=== PATIENT | male | born 1985 | race Caucasian/White ===

== ENCOUNTER 2017-02-10 14:51 | Emergency (ER) | payer SELFPAY ==
[2017-02-10] MEDS ORDERED: Dexamethasone 4 MG TAB ONE (15:15)
[2017-02-10] MEDS ORDERED: Gabapentin 100 MG CAP ONE (15:15)
[2017-02-10] MEDS ORDERED: Ketorolac Tromethamine 60 MG/2 ML VIAL ONE (15:15)
== END 2017-02-10 15:26 | disposition home or self-care (01) ==
LOC: MADERS 14:51
DX: M54.5 Low back pain (principal); J45.909 Unspecified asthma, uncomplicated; F31.9 Bipolar disorder, unspecified; F17.210 Nicotine dependence, cigarettes, uncomplicated
CPT/HCPCS: 96372; J1885; J8540

== ENCOUNTER 2017-09-22 18:57 | Emergency (ER) | payer SELFPAY ==
[2017-09-22] MEDS ORDERED: Ketorolac Tromethamine 60 MG/2 ML VIAL ONE (19:28)
[2017-09-22] MEDS ORDERED: HYDROcodone/Acetaminophen 10/325 mg Tablet ONE (19:28)
== END 2017-09-22 19:37 | disposition left against medical advice (07) ==
LOC: MADERS 18:57
DX: Z53.21 Procedure and treatment not carried out due to patient leaving prior to being seen by health care provider (principal)
CPT/HCPCS: J1885

== ENCOUNTER 2017-09-25 13:12 | Emergency (ER) | payer SELFPAY ==
[2017-09-25] MEDS ORDERED: HYDROcodone/Acetaminophen 10/325 mg Tablet ONE (14:14)
== END 2017-09-25 14:40 | disposition home or self-care (01) ==
LOC: MADERS 13:12
DX: M54.5 Low back pain (principal); F31.9 Bipolar disorder, unspecified; F17.210 Nicotine dependence, cigarettes, uncomplicated; J45.909 Unspecified asthma, uncomplicated
CPT/HCPCS: 99283

== ENCOUNTER 2018-03-11 10:08 | Emergency (ER) | payer SELFPAY ==
[2018-03-11] MEDS ORDERED: Ketorolac Tromethamine 60 MG/2 ML VIAL ONE (10:48)
[2018-03-11] MEDS ORDERED: traMADol HCl 50 MG TAB ONE (10:48)
--- NOTE | 2018-03-11 11:19 | CT ---
CT LUMBAR SPINE WITHOUT CONTRAST: Date: 03/11/18 HISTORY: Chronic low back pain. Difficulty standing and getting dressed. COMPARISON: None. TECHNIQUE: CT lumbar spine is performed without intravenous Gadolinium administration. Multisequential, multipla riley imaging is performed. FINDINGS: Straightening of normal lumbar lordosis, likely due to patient positioning or muscle spasm. 3.0 mm re trolisthesis of L3 upon L4, 6.0 mm retrolisthesis of L4 upon L5, and 2.0 mm retrolisthesis of L5 upon S1. No associated spondylolysis. Visualized lung parenchyma is unremarkable. Visualized solid organs have appropriate attenuation. No retroperitoneal mass, lymphadenopathy, or hematoma. Visualized aorta is unremarkable. Visualized alim entary canal is also unremarkable. Lumbar spine vertebral body height is maintained. No fracture. Transverse processes and spinous proce sses are intact. Sacroiliac joints are unremarkable. Limited evaluation of the contents of the central spinal canal and neural foramina due to technique. There appears to be a central disc bulge, incompletely evaluated, at the T10-T11 level. T11-T12 and T12-L1: No significant central canal stenosis or foraminal narrowing. L1-L2: No significant central canal stenosis or foraminal narrowing. L2-L3: No significant central canal stenosis or foraminal narrowing. L3-L4: No significant central canal stenosis or foraminal narrowing. L4-L5: There is a central disc protrusion with slight inferior disc extrusion. There is moderate central can al stenosis. Narrowing of both subarticular zones with presumed mass effect upon both traversing L5 n erve roots. Neural foramina are patent. L5-S1: Generalized disc bulge with a small central disc protrusion. No significant stenosis of the thecal sa c. Neural foramina are mildly narrowed. IMPRESSION: 1. No fracture. 2. Degenerative changes at L4-L5. Better interrogation with MRI recommended. POS: [facility]
== END 2018-03-11 11:38 | disposition home or self-care (01) ==
LOC: MADERS 10:08
DX: S39.012A Strain of muscle, fascia and tendon of lower back, initial encounter (principal); J45.909 Unspecified asthma, uncomplicated; F31.9 Bipolar disorder, unspecified; F17.210 Nicotine dependence, cigarettes, uncomplicated; X58.XXXA Exposure to other specified factors, initial encounter
CPT/HCPCS: 72131; 96372; J1885

== ENCOUNTER 2018-04-13 15:16 | Emergency (ER) | payer SELFPAY ==
--- NOTE | 2018-04-13 16:18 | RAD ---
RIGHT HAND THREE VIEWS: HISTORY: Injury to right hand with pain. FINDINGS: The carpals appear intact. Deformity of the fourth metacarpal is seen, secondary to an old healed fracture, which was demonstrat ed on prior exam from April 2016. No evidence of acute fracture identified. The metacarpals and phal anges otherwise appear intact. IMPRESSION: No acute fracture identified. POS: [facility]
[2018-04-13] MEDS ORDERED: HYDROcodone/Acetaminophen 10/325 mg Tablet ONE (16:22)
[2018-04-13] MEDS ORDERED: Naproxen 500 MG TAB ONE (16:22)
[2018-04-13] MEDS ORDERED: Triple Antibiotic Oint 1 GM Packet ONE (16:22)
[2018-04-13] MEDS ORDERED: Cephalexin 500 MG CAP ONE (16:32)
== END 2018-04-13 16:35 | disposition home or self-care (01) ==
LOC: MADERS 15:16
DX: S61.411A Laceration without foreign body of right hand, initial encounter (principal); J45.909 Unspecified asthma, uncomplicated; F31.9 Bipolar disorder, unspecified; Z87.891 Personal history of nicotine dependence; W22.01XA Walked into wall, initial encounter

== ENCOUNTER 2018-08-04 10:39 | Emergency (ER) | payer SELFPAY ==
[2018-08-04] MEDS ORDERED: Ketorolac Tromethamine 60 MG/2 ML VIAL ONE (11:20)
== END 2018-08-04 11:42 | disposition home or self-care (01) ==
LOC: MADERS 10:39
DX: M54.5 Low back pain (principal); J45.909 Unspecified asthma, uncomplicated; F31.9 Bipolar disorder, unspecified; Z87.891 Personal history of nicotine dependence
CPT/HCPCS: 96372; J1885

== ENCOUNTER 2019-01-14 08:36 | Emergency (ER) | payer SELFPAY ==
--- NOTE | 2019-01-14 09:21 | RAD ---
PA AND LATERAL CHEST: Date: 01/14/19 HISTORY: Fever and cough. COMPARISON: None available. FINDINGS: Cardiac silhouette and pulmonary vasculature are within normal limits. The superior aspect of each ammon ng apex is excluded from view. Lungs are otherwise clear. Osseous structures are intact. IMPRESSION: Exclusion of the most superior aspect of each lung apex, but there is otherwise no acute cardiopulmon catherine process. POS: [facility]
== END 2019-01-14 09:39 | disposition home or self-care (01) ==
LOC: MADERS 08:36
DX: J06.9 Acute upper respiratory infection, unspecified (principal); A08.4 Viral intestinal infection, unspecified; F31.9 Bipolar disorder, unspecified; Z87.891 Personal history of nicotine dependence; J45.909 Unspecified asthma, uncomplicated
CPT/HCPCS: 71046; 87081; 87430; 87804

== ENCOUNTER 2019-01-22 14:57 | Emergency (ER) | payer SELFPAY ==
[2019-01-22] MEDS ORDERED: Tetracaine 0.5% OPHTH SOLN/PF 4 ML BOT ONE (15:12)
== END 2019-01-22 15:45 | disposition home or self-care (01) ==
LOC: MADERS 14:57
DX: B30.9 Viral conjunctivitis, unspecified (principal); J45.909 Unspecified asthma, uncomplicated; F31.9 Bipolar disorder, unspecified; Z87.891 Personal history of nicotine dependence
CPT/HCPCS: 99283

== ENCOUNTER 2019-03-03 11:53 | Emergency (ER) | payer SELFPAY ==
[2019-03-03] MEDS ORDERED: Lidocaine 1% w/Epinephrine 1:100K 20 ML VIAL ONE (12:27)
[2019-03-03] MEDS ORDERED: Ondansetron ODT 4 MG TAB ONE (12:37)
[2019-03-03] MEDS ORDERED: Morphine 4 MG/ML VIAL ONE (12:37)
== END 2019-03-03 13:24 | disposition home or self-care (01) ==
LOC: MADERS 11:53
DX: L05.01 Pilonidal cyst with abscess (principal); F31.9 Bipolar disorder, unspecified; F17.210 Nicotine dependence, cigarettes, uncomplicated; J45.909 Unspecified asthma, uncomplicated
CPT/HCPCS: 10080; 96372; J2001; J2270; Q0162

== ENCOUNTER 2019-03-05 15:03 | Emergency (ER) | payer SELFPAY | END 2019-03-05 15:50 | disposition home or self-care (01) | LOC: MADERS 15:03 | DX: Z48.817 Encounter for surgical aftercare following surgery on the skin and subcutaneous tissue (principal); F17.210 Nicotine dependence, cigarettes, uncomplicated; F31.9 Bipolar disorder, unspecified; J45.909 Unspecified asthma, uncomplicated | CPT/HCPCS: 99282 ==

== ENCOUNTER 2019-05-09 21:05 | Emergency (ER) | payer SELFPAY ==
[2019-05-09] MEDS ORDERED: Ibuprofen 800 MG TAB ONE (21:32)
== END 2019-05-09 21:35 | disposition home or self-care (01) ==
LOC: MADERS 21:05
DX: S39.011A Strain of muscle, fascia and tendon of abdomen, initial encounter (principal); F31.9 Bipolar disorder, unspecified; F17.210 Nicotine dependence, cigarettes, uncomplicated; X50.0XXA Overexertion from strenuous movement or load, initial encounter
CPT/HCPCS: 99406

== ENCOUNTER 2019-08-30 20:31 | Emergency (ER) | payer SELFPAY ==
[2019-08-30] MEDS ORDERED: Ibuprofen 800 MG TAB ONE (20:50)
== END 2019-08-30 21:05 | disposition home or self-care (01) ==
LOC: MADERS 20:31
DX: L05.91 Pilonidal cyst without abscess (principal); J45.909 Unspecified asthma, uncomplicated; F31.9 Bipolar disorder, unspecified; F17.210 Nicotine dependence, cigarettes, uncomplicated; Z87.11 Personal history of peptic ulcer disease; Z85.21 Personal history of malignant neoplasm of larynx
CPT/HCPCS: 99283

== ENCOUNTER 2019-09-04 14:37 | Emergency (ER) | payer SELFPAY | END 2019-09-04 15:15 | disposition home or self-care (01) | LOC: MADERS 14:37 | DX: L05.91 Pilonidal cyst without abscess (principal); J45.909 Unspecified asthma, uncomplicated; F31.9 Bipolar disorder, unspecified; F17.210 Nicotine dependence, cigarettes, uncomplicated | CPT/HCPCS: 99282 ==

== ENCOUNTER 2019-09-22 09:23 | Emergency (ER) | payer SELFPAY | END 2019-09-22 09:48 | disposition left against medical advice (07) | LOC: MADERS 09:23 | DX: Z53.21 Procedure and treatment not carried out due to patient leaving prior to being seen by health care provider (principal) ==

== ENCOUNTER 2019-11-19 19:45 | Emergency (ER) | payer SELFPAY ==
[2019-11-19] MEDS ORDERED: Lidocaine 2% w/Epinephrine 1:200K 20 ML VIAL ONE (20:15)
[2019-11-19] MEDS ORDERED: Ibuprofen 800 MG TAB ONE (20:30)
[2019-11-19] MEDS ORDERED: Sulfameth/Trimethoprim DS 800-160mg TAB ONE (20:30)
== END 2019-11-19 20:43 | disposition home or self-care (01) ==
LOC: MADERS 19:45
DX: L05.01 Pilonidal cyst with abscess (principal); J45.909 Unspecified asthma, uncomplicated; F31.9 Bipolar disorder, unspecified; F17.210 Nicotine dependence, cigarettes, uncomplicated
CPT/HCPCS: 10080

== ENCOUNTER 2019-11-24 09:52 | Emergency (ER) | payer SELFPAY ==
--- NOTE | 2019-11-24 10:48 | RAD ---
Exam: Lumbar spine 3 views HISTORY: Pain. Patient fell 2 days ago. COMPARISON: none FINDINGS: Straightening of normal lumbar lordosis may be due to patient position or muscle spasm. Pre served disc space height. Vertebral body heights are maintained and no fracture. Visualized sacrum and bony pelvis are intact. IMPRESSION: No fracture.
[2019-11-24] MEDS ORDERED: Ketorolac Tromethamine 30 MG/ML VIAL ONE (11:00)
== END 2019-11-24 11:09 | disposition home or self-care (01) ==
LOC: MADERS 09:52
DX: S39.012A Strain of muscle, fascia and tendon of lower back, initial encounter (principal); X50.1XXA Overexertion from prolonged static or awkward postures, initial encounter
CPT/HCPCS: 72100; 96372; J1885

== ENCOUNTER 2020-02-12 13:00 | Emergency (ER) | payer SELFPAY ==
[2020-02-12] MEDS ORDERED: Lidocaine 1% w/Epinephrine 1:100K 20 ML VIAL ONE (13:20)
[2020-02-12] MEDS ORDERED: HYDROcodone/Acetaminophen 5/325 mg Tablet ONE (13:20)
[2020-02-12] MEDS ORDERED: Clindamycin 150 MG CAP ONE (13:20)
[2020-02-12] MEDS ORDERED: Adacel (T-DAP) 0.5 ML SYRINGE ONE (13:27)
== END 2020-02-12 13:55 | disposition home or self-care (01) ==
LOC: MADERS 13:00
DX: L02.31 Cutaneous abscess of buttock (principal); L03.317 Cellulitis of buttock; J45.909 Unspecified asthma, uncomplicated; F17.210 Nicotine dependence, cigarettes, uncomplicated; Z23 Encounter for immunization
CPT/HCPCS: 10060; 90471; 90715

== ENCOUNTER 2020-12-31 14:59 | Emergency (ER) | payer SELFPAY ==
[2020-12-31] MEDS ORDERED: predniSONE 20 MG TAB ONE (15:36)
--- NOTE | 2020-12-31 16:08 | RAD ---
XR Chest 1 View Portable History: Cough, fever and shortness of breath Comparison: Radiograph January 14, 2019 Findings: Lungs are clear. No pneumothorax or effusion. Cardiac silhouette and mediastinal contours a re within normal limits. No acute osseous abnormality. Impression: No acute intrathoracic abnormality.
[2021-01-01 05:15] LABS: SARS-CoV-2 PCR by NAA Not Detected (NotDetected)
== END 2020-12-31 16:45 | disposition home or self-care (01) ==
LOC: MADERS 14:59
DX: J01.90 Acute sinusitis, unspecified (principal); R05 Cough; R06.02 Shortness of breath; Z20.822 Contact with and (suspected) exposure to COVID-19; J45.909 Unspecified asthma, uncomplicated; F17.210 Nicotine dependence, cigarettes, uncomplicated
CPT/HCPCS: 71045; 87635; J7512; U0003; U0005

== ENCOUNTER 2021-04-13 17:09 | Emergency (ER) | payer OTHER, SELFPAY ==
[2021-04-13] MEDS ORDERED: Lidocaine 1% w/Epinephrine 1:100K 20 ML VIAL ONE (18:23)
== END 2021-04-13 18:50 | disposition home or self-care (01) ==
LOC: MADERS 17:09
DX: L05.91 Pilonidal cyst without abscess (principal); J45.909 Unspecified asthma, uncomplicated; F17.210 Nicotine dependence, cigarettes, uncomplicated
CPT/HCPCS: 10080

== ENCOUNTER 2021-04-15 10:02 | Emergency (ER) | payer SELFPAY ==
[2021-04-15] MEDS ORDERED: Amoxicillin/Potassium Clav 875 MG TAB ONE (11:32)
== END 2021-04-15 11:38 | disposition home or self-care (01) ==
LOC: MADERS 10:02
DX: Z48.817 Encounter for surgical aftercare following surgery on the skin and subcutaneous tissue (principal); I10 Essential (primary) hypertension; F17.210 Nicotine dependence, cigarettes, uncomplicated; J45.909 Unspecified asthma, uncomplicated
CPT/HCPCS: 99282

== ENCOUNTER 2021-06-03 10:30 | Emergency (ER) | payer SELFPAY | END 2021-06-03 12:13 | disposition home or self-care (01) | LOC: MADERS 10:30 | DX: J44.1 Chronic obstructive pulmonary disease with (acute) exacerbation (principal); F17.210 Nicotine dependence, cigarettes, uncomplicated | CPT/HCPCS: 71045; 99406 ==

== ENCOUNTER 2021-07-29 14:26 | Emergency (ER) | payer SELFPAY | END 2021-07-29 16:00 | disposition home or self-care (01) | LOC: MADERS 14:26 | DX: L05.01 Pilonidal cyst with abscess (principal); J44.9 Chronic obstructive pulmonary disease, unspecified; F17.210 Nicotine dependence, cigarettes, uncomplicated | CPT/HCPCS: 99283 ==